=== PATIENT | female | born 1980 | race Caucasian/White ===

== ENCOUNTER → 2024-01-03 13:28 | Outpatient (REF) | payer BC, SELFPAY | LOC: MRI 3T 13:28 | PROVIDERS: ATTENDING PHYSICIAN Emergency Medicine Sports Medicine; FAMILY PHYSICIAN Family Medicine | DX: S43.432D Superior glenoid labrum lesion of left shoulder, subsequent encounter (principal) | CPT/HCPCS: 23350; 73040; 73221 ==

== ENCOUNTER → 2024-04-03 16:13 | Outpatient (REF) | payer BC, SELFPAY | LOC: HWRAD 16:13 | PROVIDERS: ATTENDING PHYSICIAN Internal Medicine | DX: R05.1 Acute cough (principal) | CPT/HCPCS: 71046 ==

== ENCOUNTER → 2024-04-12 13:31 | Outpatient (REF) | payer BC, SELFPAY | LOC: WDC 13:31 | PROVIDERS: ATTENDING PHYSICIAN Obstetrics & Gynecology; FAMILY PHYSICIAN Internal Medicine | DX: R92.2 Inconclusive mammogram (principal) | CPT/HCPCS: 76641 ==

== ENCOUNTER → 2024-09-05 17:17 | Outpatient (REF) | payer BC, SELFPAY | LOC: WDC 17:17 | PROVIDERS: ATTENDING PHYSICIAN Obstetrics & Gynecology; FAMILY PHYSICIAN Internal Medicine | DX: Z12.31 Encounter for screening mammogram for malignant neoplasm of breast (principal) | CPT/HCPCS: 77063; 77067 ==

== ENCOUNTER → 2025-01-16 10:00 | Outpatient (REF) | payer BC, SELFPAY | LOC: WDC 10:00 | PROVIDERS: ATTENDING PHYSICIAN Advanced Practice Midwife; FAMILY PHYSICIAN Internal Medicine | DX: N63.20 Unspecified lump in the left breast, unspecified quadrant (principal) | CPT/HCPCS: 76642; 77061; 77065 ==

== ENCOUNTER → 2025-04-17 14:45 | Outpatient (REF) | payer BC, SELFPAY | LOC: WDC 14:45 | PROVIDERS: ATTENDING PHYSICIAN Obstetrics & Gynecology; FAMILY PHYSICIAN Internal Medicine | DX: R92.2 Inconclusive mammogram (principal); R92.343 Mammographic extreme density, bilateral breasts | CPT/HCPCS: 76641 ==